=== PATIENT | female | born 1965 | race Caucasian/White ===

== ENCOUNTER 2016-03-16 02:54 | Emergency (ER) | payer MEDICAID ==
--- NOTE | 2016-03-16 02:59 | EDPHY ---
H & P HPI/ROS: HPI CHIEF COMPLAINT: Right eye pain HISTORY OF PRESENT ILLNESS: This patient very pleasant 50-year-old female, significant past medical history for diabetes, also has a clogged tear duct on the right eye. She is due to have surgery on this on the of this month. She presents emergency room as she developed eye pain in her right eye similar to many episodes when her tear duct does not help lubricate her eye. Patient tells me that she is due to have surgery later this month. Around 11:00 a.m. this morning she developed right eye pain the pain is around her right eye it does not involve the globe of her eye. She tells me she has had this before when her tear duct gets clogged. She was taking hydrocodone for this this is made her nauseous. She decided come in emergency room denies she cannot tolerate the pain anymore. And pain medicine is making her nauseous. Patient denies any visual disturbance specifically denies blurry vision, loss of vision , curtain coming over her vision, floaters or spots. Past Medical History: Diabetes, tear duct malfunction Past Surgical History: Denies any significant surgical history Social History: denies use of drugs alcohol tobacco products Family History: noncontributory ROS REVIEW OF SYSTEMS: A comprehensive 10 point review of systems is otherwise negative aside from elements mentioned in the history of present illness. Exam Constitutional triage nursing summary reviewed, vital signs reviewed, awake/ alert. Eyes normal conjunctivae and sclera, EOMI, PERRLA. Right eye exam: Extraocular movements intact, visual acuity reviewed and normal, pupil equal round reactive to light, anterior chamber is normal, there is no hyphema, there is no conjunctival injecting, there is no iritis, posterior eye exam without dilatation is unremarkable, the medial canthus has clear fluid present. There is no fluorescein uptake. No evidence of corneal abrasion. Proparacaine was applied to the eye and she feels much better. Lids were everted no foreign body visualized. HENT normal inspection, atraumatic, moist mucus membranes, no epistaxis, neck supple/ no meningismus, no raccoon eyes. Respiratory clear to auscultation bilaterally, normal breath sounds, no respiratory distress, no wheezing. Cardiovascular rate normal, regular rhythm, no murmur, no edema, distal pulses normal. Gastrointestinal soft, non-tender, no rebound, no guarding, normal bowel sounds, no distension, no pulsatile mass. Genitourinary no CVA tenderness. Musculoskeletal no midline vertebral tenderness, full range of motion, no calf swelling, no tenderness of extremities, no meningismus, good pulses, neurovascularly intact. Skin pink, warm, & dry, no rash, skin atraumatic. Neurologic awake, alert and oriented x 3, AAOx3, moves all 4 extremities equally, motor intact, sensory intact, CN II-XII intact, normal cerebellar, normal vision, normal speech. Psychiatric normal mood/affect. Heme/Lymph/Immune no lymphadenopathy. Differential Diagnosis: Includes but is not limited to in a particular order corneal abrasion, traumatic iritis, conjunctivitis, acute angle glaucoma, hyphema, tear duct malfunction, ocular migraine, sinusitis, vitreous hemorrhage , retinal detachment Medical Decision Making: Patient here in the emergency room with right eye pain. Will check eye pressure make sure does not glaucoma, she tells me that this pain is very similar due to her malfunctioning tear duct and she is due to have this repaired this month. She took Hodgen prior to arrival which made her nauseous. She is complaining of right eye pain and pain around her right eye. She denies temporal pain denies headache, denies chest pain or shortness of breath denies neck pain. She denies visual disturbance. Proparacaine will be applied to the eye to see if this gives her pain relief, she will be given ibuprofen for pain control as well as Zofran for nausea. Will rule out glaucoma and corneal abrasion. will need to do an eye exam to look at her anterior chamber and posterior eye. Re-evaluation: 0325: patient feeling much better after proparacaine drops and ibuprofen 800 mg and Zofran 4 mg. She is resting comfortably her initial eye pain was 8/10 it is currently 3/10. I did check her eye pressure in her right eye 3 times with the Rashawn-Pen I got a reading of 15, 16, 16. Visual acuity reviewed left eye 20/30, right eye 20/30, both eyes 20/25 0533: re-examination at this time this patient is resting comfortably. Her pain did improved to 3/10 however it did start to increase again back to 5/10 she is requesting IV pain medicine I will place an IV in her give her 1 mg IV Dilaudid. Due to the ongoing right eye pain without evidence of significant identifiable eye issue I will perform a CT scan of her head to make sure this is not intracranial pain referred behind her right eye. Specifically tumor or bleed. However her neurological exam is unremarkable. CT scan of the head without IV contrast The results of the study are negative for acute intracranial injury specifically no bleed, no of tumor The study was read by Dr. Hernández. I viewed the images myself on the PACS system. 0605: re-examination at this time this patient is feeling much better after IV Dilaudid. Her pain is now 2/10. She is requesting be discharged home. I do recommend close follow-up with her eligibility specialist she understands this. She is requesting more pain medicine for home a right her 10 mg Hodgen. She does understand can cause sedation she should only take this if she has severe pain. She understands she develops worsening pain, trouble with her vision she needs return to the emergency room. Her eye exam is unremarkable and looks healthy. It is possible this is an ocular migraine versus clogged duct causing her pain. There is no evidence of cellulitis or orbital cellulitis on exam or on CT. She understands strict return precautions. Source: Patient Constitutional: Initial Vital Signs Temperature (C) 36.8 C 03/16/16 03:02 Heart Rate 60 03/16/16 03:02 Respiratory Rate 16 03/16/16 03:02 Blood Pressure 157/69 H 03/16/16 03:02 O2 Sat (%) 95 03/16/16 03:02 O2 Delivery Mode Room Air O2 (L/minute) 2 Allergies/Adverse Reactions: No Known Allergies Allergy (Unverified 03/16/16 03:01) Home Medications: Medication Instructions Recorded Hydrocodone/Acetaminophen [Hodgen 1 each PO BID #10 tablet 03/16/16 10-325 Tablet] Ibuprofen [Motrin (*)] 800 mg PO Q6-8PRN #7 tab 03/16/16 Metformin HCl 03/16/16 Hodgen 5/325 (*) 03/16/16 Medical Decision Making - Data Points Medications Given: Discontinued Medications Fluorescein Sodium (Glddb-X-Idfei) 1 mg OP EDNOW ONE Stop: 03/16/16 03:20 Last Admin: 03/16/16 03:16 Dose: 1 mg Hydromorphone HCl (Dilaudid) 2 mg PO EDNOW ONE Stop: 03/16/16 04:11 Last Admin: 03/16/16 04:15 Dose: 2 mg Hydromorphone HCl (Dilaudid) 1 mg IVP EDNOW ONE Stop: 03/16/16 05:30 Last Admin: 03/16/16 05:36 Dose: 1 mg Sodium Chloride (Ns) 1,000 mls @ 0 mls/hr IV ONCE ONE PRN Reason: Wide Open Stop: 03/16/16 05:30 Last Admin: 03/16/16 05:36 Dose: 1,000 mls Ibuprofen (Motrin) 800 mg PO EDNOW ONE Stop: 03/16/16 03:20 Last Admin: 03/16/16 03:22 Dose: 800 mg Ondansetron HCl (Zofran Odt) 4 mg PO EDNOW ONE Stop: 03/16/16 03:20 Last Admin: 03/16/16 03:15 Dose: 4 mg Proparacaine HCl (Alcaine 0.5%) 1 drops OP EDNOW ONE Stop: 03/16/16 03:17 Last Admin: 03/16/16 03:16 Dose: 1 drop Departure - Departure Disposition: Home, Routine, Self-Care Clinical Impression: Pain, eye, right Condition: Fair Instructions: Eye Pain (ED) Additional Instructions: 1. Use cool compress over her right eye, take ibuprofen for pain control. 2. please follow up with her eligibility specialist. 3.Return to the emergency room if she develops any worsening symptoms questions or concerns includes worsening pain or trouble with her vision. [place]errals: [place],. [Primary Care Provider] - As per Instructions Garrett Etienne MD [Medical Doctor] - As per Instructions Prescriptions: Ibuprofen [Motrin (*)] 800 mg PO Q6-8PRN #7 tab Hydrocodone/Acetaminophen [Hodgen 10-325 Tablet] 1 each PO BID #10 tablet
[2016-03-16 03:05] VITALS: RESP 16
[2016-03-16] MEDS ORDERED: FLUORESCEIN SODIUM 1 MG STRIP OP ONE ×2 (03:11→03:19)
[2016-03-16] MEDS ORDERED: ONDANSETRON DISINTEGRATING 4 MG TAB ONE (03:11)
[2016-03-16] MEDS ORDERED: PROPARACAINE 0.5% 15 ML OPHT DROP ONE (03:11)
[2016-03-16] MEDS ORDERED: PROPARACAINE 0.5% 15 ML OPHT DROP OP ONE (03:16)
[2016-03-16] MEDS ORDERED: ONDANSETRON DISINTEGRATING 4 MG TAB PO ONE (03:19)
[2016-03-16] MEDS ORDERED: IBUPROFEN 200 MG TAB PO ONE ×2 (03:19)
[2016-03-16] MEDS ORDERED: HYDROmorphONE/DILAUDID 2 MG TAB PO ONE (04:10)
[2016-03-16] MEDS ORDERED: HYDROmorphONE/DILAUDID 1 MG/ML SYR ONE (05:27)
[2016-03-16] MEDS ORDERED: NS 1,000 ML IV ONE (05:29)
[2016-03-16] MEDS ORDERED: HYDROmorphONE/DILAUDID 1 MG/ML SYR IVP ONE (05:29)
[2016-03-16 06:24] VITALS: BP 159/89; PULSE 64; TEMP 98.4; O2SAT 93
--- NOTE | 2016-03-16 08:24 | CT ---
Unenhanced CT Head March 16, 2016 0543 hours History: Right retroorbital pain. Comparison: None available. Technique: Axial unenhanced images were obtained from the vertex through the skull base. Dose reduction techniques were utilized. Findings: Perez-white differentiation is preserved. The ventricles and sulci are normal. No intracranial hemorrhage is identified. No extraaxial fluid collections are identified. There is no mass effect or evidence of infarct. Empty sella is noted. The skull and skull base are unremarkable. Mild mucous membrane thickening is present in the paranasal sinuses. Mastoid air cells are normally aerated. The right orbit is grossly unremarkable. There is mild superficial soft tissue swelling at the inferior aspect of the right orbit. There is no postseptal inflammation, hematoma or mass. Impression: Mild right periorbital soft tissue swelling with no acute intracranial or intraorbital findings. Findings discussed with Dallas Mckenzie today at 0601 hours. Preliminary and final reports are concordant. POS99 MTDD
== END 2016-03-16 06:24 | disposition home or self-care (01) ==
DX: H57.11 Ocular pain, right eye (principal)
CPT/HCPCS: 96374; J1170

== ENCOUNTER → 2016-12-11 | Outpatient (CLI) | payer MEDICAID | LOC: FIMAGING 09:16 | PROVIDERS: ATTEND Registered Nurse | DX: Z12.31 Encounter for screening mammogram for malignant neoplasm of breast (principal) | CPT/HCPCS: G0202 ==